=== PATIENT | male | born 1990 | race Caucasian/White ===

== ENCOUNTER 2020-06-16 05:22 | Emergency (ER) | payer OTHER | END 2020-06-16 06:50 | LOC: ED 05:22 | DX: Z02.89 Encounter for other administrative examinations (principal) ==

== ENCOUNTER 2020-06-16 05:22 | Emergency (ER) | payer MEDICAID ==
[~2020-06-16] VITALS: Ht 167.6 cm; Wt 72.6 kg
[2020-06-16 05:32] VITALS: Ht 167.6 cm; Wt 72.6 kg
[2020-06-16 06:26] VITALS: BP 119/83
== END 2020-06-16 06:50 ==
LOC: ED 05:22
DX: S80.811A Abrasion, right lower leg, initial encounter (principal); S80.812A Abrasion, left lower leg, initial encounter; Z88.0 Allergy status to penicillin; X58.XXXA Exposure to other specified factors, initial encounter; Y93.89 Activity, other specified; Y92.89 Other specified places as the place of occurrence of the external cause; Y99.8 Other external cause status
CPT/HCPCS: 90715